=== PATIENT | male | born 1990 | race African-American/Black ===

== ENCOUNTER 2020-11-04 14:29 | Emergency (ER) | payer MEDICAID ==
[~2020-11-04] VITALS: Ht 175.3 cm; Wt 84.0 kg
[2020-11-04 14:39] VITALS: BP 165/101
[2020-11-04] MEDS ORDERED: IBUPROFEN 600MG TABLET PO ONE (16:45)
[2020-11-04] MEDS ORDERED: CLINDAMYCIN 600 MG in DEXTROSE 5% WATER 50 ML IV ONE (16:45)
[2020-11-04] MEDS ORDERED: CLINDAMYCIN 600MG PREMIX 50 ML IV NR (17:00)
== END 2020-11-04 17:59 | disposition home or self-care (01) ==
LOC: ER 15:23
DX: K04.7 Periapical abscess without sinus (principal); K08.89 Other specified disorders of teeth and supporting structures; J45.909 Unspecified asthma, uncomplicated; F12.10 Cannabis abuse, uncomplicated
CPT/HCPCS: 96365; 99284; J3490; Z7610; J7060

== ENCOUNTER 2022-03-07 15:00 | Emergency (ER) | payer MEDICAID ==
[~2022-03-07] VITALS: Ht 177.8 cm; Wt 77.0 kg
[2022-03-07 16:02] VITALS: BP 141/87
== END 2022-03-07 16:27 | disposition home or self-care (01) ==
LOC: ER 15:00
DX: H61.22 Impacted cerumen, left ear (principal); J45.909 Unspecified asthma, uncomplicated; F12.10 Cannabis abuse, uncomplicated
CPT/HCPCS: 99281

== ENCOUNTER 2022-03-11 03:45 | Emergency (ER) | payer MEDICAID ==
[~2022-03-11] VITALS: Ht 175.3 cm; Wt 70.9 kg
[2022-03-11] MEDS ORDERED: SODIUM CHLORIDE 0.9% 1,000 ML IV ONE (04:00)
[2022-03-11 04:52] LABS: BASOPHILS % 0.4 % (0.0-2.0); EOSINOPHILS % 0.1 % (0.0-5.0); HEMATOCRIT. 44.5 % (42.0-52.0); HEMOGLOBIN. 15.5 g/dL (14.0-18.0); LYMPHOCYTES % 14.7 % (20.0-50.0); MEAN CORPUSCULAR HEMOGLOBIN 30.4 pg (28.0-32.0); MEAN CORPUSCULAR VOLUME 87.2 fL (80.0-94.0); MEAN PLATELET VOLUME 7.3 fl (7.4-10.4); MONOCYTES % 6.7 % (2.0-8.0); NEUTROPHILS % 78.1 % (40.0-76.0); PLATELET 343 x1000/uL (130-400); RED CELL DISTRIBUTION WIDTH 12.9 % (11.6-14.6)
[2022-03-11 05:00] VITALS: BP 162/92
[2022-03-11 05:06] LABS: CHLORIDE 104 mEq/L (98-107)
== END 2022-03-11 05:31 | disposition home or self-care (01) ==
LOC: ER 03:45
DX: F12.10 Cannabis abuse, uncomplicated (principal); R42 Dizziness and giddiness; J45.909 Unspecified asthma, uncomplicated; F17.200 Nicotine dependence, unspecified, uncomplicated; Z98.890 Other specified postprocedural states
CPT/HCPCS: 36415; 71045; 80053; 85025; 93005; 96360; 99285; J7030; Z7610